=== PATIENT | female | born 1990 | race Caucasian/White ===

== ENCOUNTER 2018-02-27 14:18 | Emergency (ER) | payer OTHER ==
[~2018-02-27] VITALS: Ht 160 cm; Wt 74.8 kg
[~2018-02-27 14:18] MED LIST: DOCU-131 PO; IBUP200T49 PO; OXYC-302 PO; PREN1TAB56 PO; humera
[2018-02-27 14:23] VITALS: BP 140/102
[2018-02-27] MEDS ORDERED: IBUPROFEN 200 MG TABLET PO ONE (15:00)
[2018-02-27] MEDS ORDERED: IBUPROFEN 200 MG TABLET ONE (15:03)
== END 2018-02-27 15:34 | disposition home or self-care (01) ==
LOC: ED 15:00
DX: S39.012A Strain of muscle, fascia and tendon of lower back, initial encounter (principal); G89.11 Acute pain due to trauma; M06.9 Rheumatoid arthritis, unspecified; V49.49XA Driver injured in collision with other motor vehicles in traffic accident, initial encounter; Y93.89 Activity, other specified; Y92.89 Other specified places as the place of occurrence of the external cause; Y99.8 Other external cause status
CPT/HCPCS: 72110; 99284